=== PATIENT | female | born 1990 | race American Indian/Alaskan Native ===

== ENCOUNTER 2019-12-27 11:50 | Day surgery (SDC) | payer OTHER ==
[~2019-12-27 11:50] MED LIST: CELECOXIB 200 MG CAP PO NR; GABAPENTIN 300 MG CAP PO NR; LACTATED RINGERS 1,000 ML IV SCH; MAGNESIUM OXIDE 400 MG TAB PO SCH; MIDAZOLAM 2 MG/2 ML INJ IV NR
[2019-12-27] MEDS ORDERED: HYDROmorphone 1 MG/1 ML INJ IV PRN (14:00)
--- NOTE | 2019-12-27 14:00 | Anesthesia Consultation ---
Anesthesia Consult and Med Hx Date of service: 12/27/19 - Airway Anesthetic Teeth Evaluation: Good ROM Head & Neck: Adequate Mental/Hyoid Distance: Adequate Mallampati Class: Class III Intubation Access Assessment: Possibly Difficult - Pulmonary Exam CTA: Yes - Cardiac Exam Cardiac Exam: RRR - Pre-Operative Health Status ASA Pre-Surgery Classification: ASA1 Proposed Anesthetic Plan: General - Pulmonary Hx Smoking: No Hx Respiratory Symptoms: No - Cardiovascular System Hx Hypertension: No - Central Nervous System CVA: No - Gastrointestinal Hx Gastroesophageal Reflux Disease: No - Endocrine Hx Renal Disease: No Hx Liver Disease: No Hx Insulin Dependent Diabetes: No Hx Non-Insulin Dependent Diabetes: No Hx Thyroid Disease: No - Other Systems Hx Obesity: Yes (BMI 32) - Additional Comments Anesthesia Medical History Comments: No hx anesthetic complicaitons.
--- NOTE | 2019-12-27 14:00 | Anesthesia Day of Surgery ---
Anesthesia Day of Surgery - Day of Surgery Patient Examined: Yes Patient H&P Reviewed: Yes Patient is NPO: Yes
[2019-12-27] MEDS ORDERED: HYDROmorphone 1 MG/1 ML INJ ONE (14:39)
[2019-12-27] MEDS ORDERED: ROCURONIUM 50 MG/5 ML INJ IV ONE (14:40)
[2019-12-27] MEDS ORDERED: propofoL 200 MG/20 ML VIAL IV ONE (14:40)
[2019-12-27] MEDS ORDERED: LIDOCAINE MPF (2%) 20 MG/1 ML VIAL 5 ML ONE (14:40)
[2019-12-27] MEDS ORDERED: SUCCINYLCHOLINE CHLORIDE 200 MG/10 ML INJ MDV ONE (14:40)
[2019-12-27] MEDS ORDERED: BUPIVACAINE/PF (0.5%) 5 MG/1 ML 30 ML VIAL INFILTRATI ONE ×2 (14:47→16:01)
[2019-12-27] MEDS ORDERED: SODIUM CHLORIDE 0.9% IRRIG SOLN 2000 ML IR ONE (16:01)
[2019-12-27] MEDS ORDERED: SODIUM CHLORIDE 0.9% IRR 1,500 ML BOTTLE IR ONE (16:01)
[2019-12-27] MEDS ORDERED: KETOROLAC 30 MG/1 ML INJ ONE (16:24)
[2019-12-27] MEDS ORDERED: ONDANSETRON 4 MG/2 ML INJ ONE (16:24)
[2019-12-27] MEDS ORDERED: GLYCOPYRROLATE 0.4 MG/2 ML INJ ONE (16:24)
[2019-12-27] MEDS ORDERED: NEOSTIGMINE 10MG/10 ML INJ MDV ONE (16:24)
--- NOTE | 2019-12-27 16:43 | Short Stay Summary ---
Short Stay Documentation Date of service: 12/27/19 Narrative H&P: see PReOP H&P. Pt presented for ovarian cystectomy for suspected Dermoid cyst and pelvic pain. - History H&P: obtained from office - Allergies and Medications Current Medications: Allergies No Known Allergies Allergy (Unverified 12/19/19 14:50) Home Medications Medication Instructions Recorded Confirmed Last Taken Type Naproxen [Naprosyn] 500 mg PO BID PRN 12/27/19 12/27/19 12/26/19 History Active Medications Celecoxib (Celebrex) 200 mg PO PREOP NR Stop: 12/27/19 23:00 Last Admin: 12/27/19 13:58 Dose: 200 mg Documented by: Gabapentin (Gabapentin) 600 mg PO PREOP NR Stop: 12/27/19 23:00 Last Admin: 12/27/19 13:58 Dose: 600 mg Documented by: Hydromorphone HCl (Dilaudid) 0.5 mg IV Q10MIN PRN PRN Reason: Pain , Severe (7-10) Stop: 12/27/19 23:00 Lactated Ringer's (Lactated Ringers) 1,000 mls @ 100 mls/hr IV DIRECT LISA Stop: 12/27/19 23:59 Last Admin: 12/27/19 13:52 Dose: 100 mls/hr Documented by: Magnesium Oxide (Mag-Ox) 400 mg PO PREOP LISA Stop: 12/27/19 23:00 Last Admin: 12/27/19 13:57 Dose: 400 mg Documented by: Midazolam HCl (Versed) 2 mg IV PREOP NR Stop: 12/27/19 23:00 Last Admin: 12/27/19 14:09 Dose: 2 mg Documented by: - Brief post op/procedure progress note Date of procedure: 12/27/19 Pre-op diagnosis: pelvic pain and Dermoid cyst Post-op diagnosis: other (No cyst present, pelvic scarring on the right, possible endometriosis) Procedure: Diagnostic laparoscopy Patient taken to the operating room and prepped and draped in usual fashion. An acorn uterine manipulator was placed and a Lacey catheter was placed. Attention was then turned abdominally. A 5 mm umbilical incision was made. Varies needle placed in the abdominal cavity and the abdomen was appropriately insufflated with CO2 gas. Verese needle removed and the 5 mm trocar was placed. Placement confirmed with the camera. Findings noted above. At this point an effort to improve visualization and manipulation of pelvic organs and tissues two 5 mm ports were made. One was in the left lower quadrant about 2 fingerbreadths superior and medial to the ASIS. The other was a 5 mm suprapubic midline port. Both were placed under direct visualization and down without difficulty. At this point the pelvis was evaluated for significant amount of time to see if there was any area that was safe to dissect or if there was an ovarian cyst that was noted. Even another bimanual exam was done while the laparoscopy camera was visualized in the pelvis and no cyst was noted. The scarring around the right adnexa were too dense to safely dissect especially with concern of the ureter nearby. As noted above in the findings, the peritoneal windows that were noted in the posterior cul-de-sac were attempted to be excised but were not able to safely be excised due to difficulty in visualizing those areas. Surgicel was placed over that area to the slight oozing that resulted. Good hemostasis noted at that point. At this point no further intervention could safely be done. As result the procedure was concluded. Abdomen was fully desufflated. Trochars were removed and the trocar sites were closed with 4-0 Monocryl in a subcuticular fashion. Local Marcaine was applied all the incision sites. The acorn uterine manipulator and the Lacey were removed. Procedure concluded at this point. Patient tolerated the procedure well. All instrument and lap c ounts are correct. Patient taken to the recovery in stable condition. Anesthesia: GETA Findings: Uterus was retroverted (which was likely the "mass" palpated on preop exam in the post cul de sac). No ovarian cysts were noted. Preoperatively patient was suspected to have a 4.85 cm dermoid on the right by ultrasound. But no such cyst was noted during the procedure. Upon entry into the abdomen with laparoscopic camera there was a mild amount of dark old blood in the pelvis. Perhaps she had a ruptured endometrioma? Left tube and ovary were within normal limits. The right tube and ovary were normal except they were significantly scarred to the pelvic sidewall. Their mobility was poor. Endometriosis is suspected based the scarring on the right side but there were no specific endometriotic lesions that were visible to fulgurate or excised. In the posterior cul-de-sac there were 2 small peritoneal windows that were next to each other. They were attempted to be grasped and excised but they could not be due to their location and difficulty visualizing that area in trying to safely excise those peritoneal windows. No other areas of suspected endometriotic lesions specifically were noted. Just the scarring around the right adnexa. Surgeon: NEAL BENNETT Estimated blood loss: minimal Pathology: none Condition: stable - Hospital course Hospital course: See operative report. - Disposition Condition at discharge: Stable Disposition: DC-01 TO HOME OR SELFCARE - Discharge Diagnoses (1) Pelvic pain Status: Acute Short Stay Discharge Plan Follow up with: PRIMARY CARE, [Primary Care Provider] - 7 Days
[2019-12-27 17:56] VITALS: BP 115/70
[2019-12-27] MEDS ORDERED: oxyCODONE /ACETAMINOPHEN 5-325MG TAB PO ONE (18:00)
[2019-12-27] MEDS ORDERED: ONDANSETRON 4 MG/2 ML INJ IV ONE (18:00)
--- NOTE | 2019-12-27 19:54 | Post Anesthesia Evaluation ---
- Post Anesthesia Evaluation Patient Participated: Yes Airway Patent: Yes Stable Respiratory Function: Yes Nausea/Vomiting: No Temp > 96.8F: Yes Pain Manageable: Yes Adequeate Hydration: Yes Anesthesia Complications: No
== END 2019-12-27 18:50 | disposition home or self-care (01) ==
LOC: OR 11:50
PROVIDERS: ATTEND Obstetrics & Gynecology
DX: R10.2 Pelvic and perineal pain (principal); E66.9 Obesity, unspecified; Z98.890 Other specified postprocedural states; Z68.32 Body mass index [BMI] 32.0-32.9, adult; Z79.899 Other long term (current) drug therapy
CPT/HCPCS: 49320; 81025; A4217; J0330; J1170; J1885; J2250; J2405; J2704; J2710; J7120